=== PATIENT | male | born 1995 | race Caucasian/White ===

== ENCOUNTER 2018-02-10 18:22 | Emergency (ER) | payer BC, OTHER ==
[2018-02-10 21:41] VITALS: BP 116/73
--- NOTE | 2018-02-10 22:00 | ED ---
Misa Van Thomas, scribed for Victor Manuel Castro MD on 02/10/18 at 2049 . Complex/Multi-Sys Presentation - HPI Summary HPI Summary: The patient is a 22 year old male who was driving home from the gym after exercising out his legs and his core. As he was driving, the patient reports that suddenly his bilateral hands felt numb and tingly. His hands began to contract. Then his feet and legs felt numb, and the patient felt as if he was going to pass out. He did have some shortness of breath and nausea. The patient decided to present to the emergency department because of these symptoms. In the ED, he feels mostly relieved although he is still nauseous. - History Of Current Complaint Chief Complaint: EDGeneral Time Seen by Provider: 02/10/18 20:17 Hx Obtained From: Patient Onset/Duration: Lasting Minutes, Resolved - mostly Timing: Intermittent, Lasting: Severity Currently: Mild Severity Initially: Moderate Aggravating Factor(s): None Alleviating Factor(s): Spontaneous resolution Associated Signs And Symptoms: Positive: Other - Numbness, tingling, SOB, nausea - Allergies/Home Medications Allergies/Adverse Reactions: Allergies Allergy/AdvReac Type Severity Reaction Status Date / Time No Known Allergies Allergy Verified 02/10/18 18:34 Home Medications: Home Medications NK [No Home Medications Reported] 02/10/18 [History Confirmed 02/10/18] PMH/Surg Hx/FS Hx/Imm Hx Endocrine/Hematology History: Denies: Hx Diabetes Cardiovascular History: Denies: Hx Hypertension - Surgical History Surgery Procedure, Year, and Place: Ankle surgery Infectious Disease History: No Infectious Disease History: Denies: Traveled Outside the [place] in Last 30 Days - Family History Known Family History: Negative: Other - Patient denies relevant FHx - Social History Lives: With Family Alcohol Use: None Substance Use Type: Reports: None Smoking Status (MU): Never Smoked Tobacco Review of Systems Negative: Fever Positive: Shortness Of Breath Positive: Nausea Neurological: Other - Tingling Positive: Numbness All Other Systems Reviewed And Are Negative: Yes Physical Exam - Summary Physical Exam Summary: General: well-appearing, no pain distress Skin: warm, color reflects adequate perfusion, dry Head: normal Eyes: EOMI, BERNARDINO ENT: normal Neck: supple, nontender Respiratory: CTA, breath sounds present Cardiovascular: RRR Abdomen: soft, nontender Bowel: present Musculoskeletal: normal, strength/ROM intact Neurological: normal, sensory/motor intact, A&O x3 Psychological: affect/mood appropriate Triage Information Reviewed: Yes Vital Signs On Initial Exam: Initial Vitals Temp Pulse Resp BP Pulse Ox 98.5 F 71 14 117/73 97 02/10/18 18:24 02/10/18 18:24 02/10/18 18:24 02/10/18 18:24 02/10/18 18:24 Vital Signs Reviewed: Yes Diagnostics - Vital Signs Vital Signs Temp Pulse Resp BP Pulse Ox 02/10/18 18:24 98.5 F 71 14 117/73 97 - Laboratory Lab Statement: Any lab studies that have been ordered have been reviewed, and results considered in the medical decision making process. Complex Multi-Symp Course/Dx Course Of Treatment: Medications reviewed. THE B/L ARM AND LEG PARESTHESIAS MOST PROBABLY DUE TO DRINKING AN ENERGY DRINK, WORKING OUT AND NOT DRINKING ADEQUATE WATER. PATIENT FEELS BETTER IN THE ED. FURTHER IMPROVED WITH MORE PO WATER. DISCUSSED IVF AND LABS WHICH THE PATIENT DECLINED. F/U PMD; RETURN IF WORSE. - Diagnoses Provider Diagnoses: Paresthesia Discharge - Sign-Out/Discharge Documenting (check all that apply): Discharge - Discharge Plan Condition: Stable Disposition: HOME Patient Education Materials: Paresthesia (ED) Referrals: Rayshawn WINSLOW,Feroz Worley [Primary Care Provider] - Additional Instructions: FOLLOW UP WITH YOUR DOCTOR. DRINK PLENTY OF WATER. RETURN TO THE EMERGENCY DEPARTMENT FOR ANY WORSENING OF YOUR CONDITION OR QUESTIONS OR CONCERNS. - Billing Disposition and Condition Condition: STABLE Disposition: HOME The documentation as recorded by the Misa valdovinos Thomas accurately reflects the service I personally performed and the decisions made by me, Victor Manuel Castro MD.
== END 2018-02-10 21:41 | disposition home or self-care (01) ==
LOC: ED 18:22
DX: R20.0 Anesthesia of skin (principal); R06.02 Shortness of breath; R11.0 Nausea
CPT/HCPCS: 99282